=== PATIENT | male | born 2005 | race Caucasian/White ===

== ENCOUNTER 2024-08-07 08:06 | Outpatient (AMB) | payer OTHER, SELFPAY ==
--- NOTE | 2024-08-07 08:14 | MHC.PC.OV ---
Vital Signs 08/07/24 08:17 Height 5 ft 10.47 in Weight 119 lb 4 oz BMI 16.9 BP 120/70 Blood Pressure Location Lt brachial Position Sitting Pulse 97 Pulse Source Pulse Oximeter Temp 97.1 F Temp Source Temporal Artery Scan Pulse Oximetry (%) 98 Oxygen Delivery Method Room Air Intake Visit Reasons: establish care Intake Note: Patient is a new patient here to establish care for Ankle tendon disfunction, Scoliosis, Depression, Anxiety, Chronic pain. Transferring care from Pediatric and Adolescent medicine. Medical records have been requested and have not received. Manager Social Services Required: No Air Traffic Control Manager: Not Required per policy Accompanied by: Self / Same As Patient Allergies fluoxetine [From Prozac] Adverse Reaction (Intermediate, Verified 08/07/24 08:40) brain fog Medication List - Last Reconciled 08/07/24 by oZey Webster PA-C No Known Home Meds Tobacco use date assessed: 08/07/24 Dental Screening Dental Screen Date: 08/07/24 Did you have a dental visit in the last 12 months?: No Did you have a dental problem in the last 6 months where you did not have access to dental care?: No Was dental information given to patient?: Patient has dentist HPI establish care HPI Details 19-year-old male coming to the office with the 1st time. Presenting for a wellness visit and management of chronic conditions. History of anxiety and depression, with anxiety manifesting physically at times. Adverse reaction to fluoxetine noted, and hydroxyzine was ineffective. Depression is described as functionally manageable without current therapy. Chronic pain due to flatfoot, with past consideration of physical therapy or insoles. Pain affects feet, ankles, and occasionally knees and back. Scoliosis present with occasional back pain linked to heavy lifting otherwise asymptomatic. Smoking history of two years, with interest in cessation but no current intervention. 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 1. Little interest or pleasure in doing things: not at all 2. Feeling down, depressed, or hopeless: not at all 3. Trouble falling or staying asleep, or sleeping too much: not at all 4. Feeling tired or having little energy: not at all 5. Poor appetite or overeating: not at all 6. Feeling bad about yourself - or that you are a failure or have let yourself or your family down: not at all 7. Trouble concentrating on things, such as reading the newspaper or watching television: not at all 8. Moving or speaking so slowly that other people could have noticed. Or the opposite - being so fidgety or restless that you have been moving around a lot more than usual: not at all 9. Thoughts that you would be better off or of hurting yourself in some way: not at all Total score: 0 Depression Screening Interpretation: Negative Depression Screening Done: Yes 64303 - PHQ-9 Billing: Yes Source: Developed by Drs. Mo Sweet, Donna Henry, Robby Kumar and colleagues, with an educational virgen from [employer]. Thrive Questionnaire Date Thrive assessed: 07/31/24 I am a: Patient What is your living situation today?: I have a steady place to live Within the past 12 months, did the food you bought not last and you didn't have the money to get more?: Never true Within the past 12 months, did you worry whether your food would run out before you got money to buy more?: Never true Do you have trouble paying for medicines?: No Do you have trouble getting transportation to medical appointments?: No Do you have trouble paying your heating and electricity bill?: No Do you have trouble taking care of your child, family member or friend?: No Do you have trouble with day-to-day activities such as bathing, preparing meals, shopping, managing finances, etc.?: No Are you currently unemployed and looking for a job?: No Are you interested in more education?: Yes Please select the resources that you would like help with: None Currently or been in a relationship where the following occur: No concerns reported THRIVE Score: 0 AUDIT C Alcohol Use Questionnaire (AUDIT-C) 1. How often do you have a drink containing alcohol?: 2-3 times a week 2. How many drinks containing alcohol do you have on a typical day when you are drinking?: 1 or 2 3. How often do you have six or more drinks on one occasion?: Never Total Score: 3 JYOTI-7 AMB Questionnaire JYOTI-7 Date JYOTI - 7 assessed: 08/07/24 Feeling nervous, anxious, or on edge: 1 = Several days Not being able to stop or control worryin = Not at all Worrying too much about different things: 1 = Several days Trouble relaxin = Several days Being so restless that it is hard to sit still: 0 = Not at all Becoming easily annoyed or irritable: 2 = More than half the days Feeling afraid as if something awful might happen: 0 = Not at all Total JYOTI-7 score (0-4 normal; 5-9 mild; 10-14 moderate; 15-21 severe): 5 Source: Developed by Drs. Mo Sweet, Donna Henry, Robby Kumar and colleagues, with an educational virgen from [employer]. JYOTI-7 Assessment Billing JYOTI-7 Assessment Tool: JYOTI-7 Assessment 53116 Review of Systems Const Denies body aches, Denies chills, Denies fever(s), Denies headache(s) and Denies poor appetite Eyes Reports no additional complaints ENT Denies dysphagia, Denies dizziness, Denies headache(s) and Denies odynophagia Card Denies chest pain, Denies syncope, Denies irregular heart rhythm, Denies lightheadedness and Denies dyspnea Resp Denies cough and Denies dyspnea GI Denies abdominal pain, Denies constipation, Denies dysphagia, Reports heartburn, Denies diarrhea, Denies nausea, Denies odynophagia and Denies vomiting Reports no additional complaints Musc Details: gregg foot pain Reports no additional complaints and Denies abnormal gait Skin/Breast Reports system reviewed and no additional complaints, except as documented Neuro Denies abnormal gait, Denies dizziness, Denies syncope and Denies headache(s) Psych Reports no additional complaints Physical exam (Primary Care) Vital Signs: Last Vital Signs Temp 97.1 F 05/28/25 08:17 Pulse 97 08/07/24 08:17 BP 120/70 08/07/24 08:17 Pulse Ox 98 08/07/24 08:17 Oxygen Delivery Method Room Air 08/07/24 08:17 BMI result Body Mass Index 16.9 BMI Assessment/Plan discussion: Low BMI Low, Plan discussed: lifestyle, increase calorie intake and dietary Tobacco/Smoking Status: Tobacco use Status Tobacco use date assessed 08/07/24 08/07/24 08:24 Patient Tobacco Use Status Current everyday Tobacco 08/07/24 08:24 Tobacco use type Cigarette 08/07/24 08:24 e-Cigarette/Vaping Use Never Used 08/07/24 08:24 Are you ready to quit: No Tobacco cessation counseling provided: Yes Items discussed: Nicotine replacement Relapse Prevention: discussed the importance of a supportive environment, weight gain after smoking is common and discussed dietary, exercise and/or lifestyle changes Number of minutes spent counselin CPT code: Less than 3 minutes PHQ-9: PHQ-9 Score PHQ-9: Total score 0 08/07/24 08:24 Depression Screening Interpretation: Negative Thrive Assessment: Date of Thrive Assessment Date Thrive assessed 07/31/24 08/07/24 08:24 Currently or been in a relationship where the following occur: No concerns reported Const General: cooperative, healthy appearing, comfortable and no acute distress Orientation/consciousness: patient oriented x3 HENMT Head: Yes normocephalic Ears: hearing grossly normal bilaterally General nose exam: Normal external nose present Face and sinus: Yes normal facial exam and Yes sinuses nontender Mouth: Normal oral and palatal mucosa present and tongue normal Throat: Yes posterior oropharynx normal Eyes General: appearance normal, both eyes and all related structures Conjunctivae: conjunctivae normal Pupils: Equal, round and reactive pupils present EOM: EOMs intact bilaterally and No Nystagmus present Neck Neck: Yes full ROM and Yes no lymphadenopathy Chest Chest palpation & inspection: normal inspection of the chest Resp Effort & Inspection: normal respiratory effort Auscultation: clear to auscultation bilaterally, no crackles, no rales, no rhonchi and no wheezes Cardio Rate: regular rate Rhythm: regular rhythm Peripheral pulses: radial pulses present and dorsalis pedis present GI Inspection: Yes normal to inspection and No Abdominal wall edema Palpation (GI): Soft to palpation, not firm and nontender Auscultation: normal bowel sounds Rectal Exam - Male: Yes deferred General: Yes no CVA tenderness Back/Spine/Pelvis Back: no CVA tenderness Skin General skin exam: no rashes or lesions noted Neuro General: patient oriented x3 Cranial nerves: Yes Equal, round and reactive pupils present, Yes Midline tongue present, Yes Ability to bilaterally elevate shoulders present and No Nystagmus present Gait exam (Neuro): Normal gait present Extrem General: Yes normal to inspection, Yes full ROM and No edema Psych Speech and movement: Normal speech and movement present Affect: normal affect Attitude: cooperative Insight: Good insight present (Psych) Judgement: Good judgement present (Psych) Coding Level of Care Code New Pt Level 4 (50402) Diagnoses Annual physical exam Z00.00 Underweight R63.6 Flat feet, bilateral M21.41; M21.42 Depression F32.A Anxiety F41.9 Tobacco use disorder F17.200 Scoliosis M41.9 Decreased vision H54.7 Additional Codes JYOTI-7 Assessment Billing - JYOTI-7 Assessment Tool: JYOTI-7 Assessment 91085 ([id number]) PHQ-9 - 57602 - PHQ-9 Billing: Yes ([id number]) Assessment & Plan Assessment & Plan (1) Annual physical exam: Code(s): Z00.00 - Encounter for general adult medical examination without abnormal findings Category: Medical Plan: Patient is up-to-date on all recommended routine screenings and vaccinations for his age. Blood work was ordered and plan to follow up yearly or sooner as needed. (2) Underweight: Code(s): R63.6 - Underweight Category: Medical Plan: Patient having difficulty gaining weight discussed the importance of protein intake and regularly scheduled meals. Offered referral to plastics production machine operator today which was declined. Healthy diet and regular exercise is encouraged. (3) Flat feet, bilateral: Code(s): M21.41 - Flat foot [pes planus] (acquired), right foot; M21.42 - Flat foot [pes planus] (acquired), left foot Category: Medical Plan: Patient having bilateral foot pain due to diagnosed flat feet was previously being seen by a adding machine servicer and recommendation was made for custom orthotics. Referral was placed to Podiatry today (4) Depression: Code(s): F32.A - Depression, unspecified Category: Medical Plan: Patient does report history of functional depression was previously seeing a counselor in the past and was medicated with Prozac which he did not find beneficial. Declining counseling referral or medication management at this time. (5) Anxiety: Code(s): F41.9 - Anxiety disorder, unspecified Category: Medical Plan: See above (6) Tobacco use disorder: Code(s): F17.200 - Nicotine dependence, unspecified, uncomplicated Category: Medical Plan: Smoking cigarettes and the use of tobacco can be harmful. We discussed the importance of stopping and options to aid in smoking cessation. Declining nicotine replacement therapy or medication management at this time. (7) Scoliosis: Code(s): M41.9 - Scoliosis, unspecified Category: Medical Plan: Patient denies any symptoms of back pain related to his scoliosis. (8) Decreased vision: Code(s): H54.7 - Unspecified visual loss Category: Medical Plan: Referral was placed to optometry today patient does require corrective lenses and needs updated prescription. Plan During this visit, I addressed the patient's chronic conditions and health maintenance. Anxiety and depression are currently managed without medication; the patient uses meditation and marijuana. A referral to podiatry was made to explore custom insoles for flatfoot pain. The patient is interested in quitting smoking but is not using cessation aids. Nutritional guidance focused on increasing protein intake to address weight management. Blood work will investigate potential underlying conditions. An eye care referral was made for updated glasses. Follow-up is advised annually or as needed. This note was constructed using voice recognition software. While every effort has been made to ensure accuracy and rn international, still areas may have been included sometimes these areas may affect the content or meeting of the given symptoms. Total time spent caring for the patient today was 30 minutes. This includes time spent before the visit reviewing the chart, time spent during the visit, and time spent after the visit and documentation. Patient was informed and verbally consented to the use of an ambient scribe for clinic note documentation during this visit. Orders: Orders TSH reflex Free T4 Today F41.9 - Anxiety disorder, unspecified, Z00.00 - Encounter for general adult medical examination without abnormal findings Vitamin D 25-OH Total Today R63.6 - Underweight, Z00.00 - Encounter for general adult medical examination without abnormal findings Comprehensive Met. Panel Today R63.6 - Underweight, Z00.00 - Encounter for general adult medical examination without abnormal findings Free T4 (Free Thyroxine) Today F41.9 - Anxiety disorder, unspecified, Z00.00 - Encounter for general adult medical examination without abnormal findings Vitamin B12 and Folate Today R63.6 - Underweight, Z13.21 - Encounter for screening for nutritional disorder Complete Blood Count Auto Diff Today R63.6 - Underweight, Z00.00 - Encounter for general adult medical examination without abnormal findings LATA Reflex Titer and Pattern Today R63.6 - Underweight CT NG by PCR Today Z00.00 - Encounter for general adult medical examination without abnormal findings Referrals Podiatry Referral M21.41 - Flat foot [pes planus] (acquired), right foot, M21.42 - Flat foot [pes planus] (acquired), left foot Optometry Referral H54.7 - Unspecified visual loss, Z00.00 - Encounter for general adult medical examination without abnormal findings
--- OUTSIDE RECORDS SUMMARY | 2024-08-07 08:15 | XMS_ITS | Encounter Summary ---
Author Organization [facility] Address [address] [place] [address] Phone Care Team Providers Care Media Center Specialist Name Role Phone Ashley John MD Primary Care Provider [phone] Encounter Details Date Type Department Care Team (Late st Contact Info) Description 09/22/2016 Conversion Encounter Pediatric And Adolescent Medicine - [place] [address] [place] [address] [place] [address] Social History Tobacco Use Types Packs/Day Years Used Date Smoking Tobacco: Never Assessed Sex and Gender Information Value Date Recorded Sex Assigned at Not on file Legal Sex Male 6:33 PM EDT Gender Identity Male 04/26/2021 10:22 AM EST Sexual Orientation Straight 12/09/2019 9: 27 AM EDT documented as of this encounter Plan of Treatment Not on file documented as of this encounter Visit Diagnoses Not on filedocumented in this encounter Care Teams Media Center Specialist Relationship Specialty Start Date End Date Ashley John MD [address] [place] [address] PCP - General 07/19/17 documented as of this encounter
[2024-08-07 08:17] VITALS: BP 120/70; PULSE 97; TEMP 36.2; O2SAT 98; BMI 16.9
== END 2024-08-07 09:02 | disposition home or self-care (01) ==
LOC: HO.HMCH 08:06
DX: Z00.00 Encounter for general adult medical examination without abnormal findings (principal); R63.6 Underweight; M21.41 Flat foot [pes planus] (acquired), right foot; M21.42 Flat foot [pes planus] (acquired), left foot; F32.A Depression, unspecified; F41.9 Anxiety disorder, unspecified; F17.200 Nicotine dependence, unspecified, uncomplicated; M41.9 Scoliosis, unspecified; H54.7 Unspecified visual loss

== ENCOUNTER → 2024-08-07 08:06 | Outpatient (BNVA) | payer OTHER, SELFPAY | DX: Z00.00 Encounter for general adult medical examination without abnormal findings (principal); R63.6 Underweight; M21.41 Flat foot [pes planus] (acquired), right foot; M21.42 Flat foot [pes planus] (acquired), left foot; F32.A Depression, unspecified; F41.9 Anxiety disorder, unspecified; M41.9 Scoliosis, unspecified; H54.7 Unspecified visual loss; F17.210 Nicotine dependence, cigarettes, uncomplicated; Z13.30 Encounter for screening examination for mental health and behavioral disorders, unspecified; Z13.31 Encounter for screening for depression | CPT/HCPCS: 96127; 99385 ==

== ENCOUNTER 2024-09-25 14:56 | Outpatient (AMB) | payer OTHER, SELFPAY ==
--- NOTE | 2024-09-25 14:56 | A.OFFPC_ITS ---
Intake Visit Reasons: anxiety/ letter for work Arts Administrator Or Manager Required: No Accompanied by: Self / Same As Patient Allergies fluoxetine (From Prozac) Adverse Reaction (Intermediate, Verified 09/25/24 14:58) brain fog Tobacco use date assessed: 08/07/24 Dental Screening Dental Screen Date: 08/07/24 HPI anxiety/ letter for work HPI Details asking for wearing a headphone for anxiety for work-PAtient works [employer] making in [employer]. patient is asking a letter. 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 Mo Sweet, Donna Henry, Robby Kumar and colleagues, with an educational virgen from [employer]. Physical exam (Primary Care) Tobacco/Smoking Status: Tobacco use Status Tobacco use date assessed 08/07/24 09/25/24 14:58 Patient Tobacco Use Status Current everyday Tobacco 09/25/24 14:58 Tobacco use type Cigarette 09/25/24 14:58 e-Cigarette/Vaping Use Never Used 09/25/24 14:58 Thrive Assessment: Date of Thrive Assessment Date Thrive assessed 07/31/24 09/25/24 14:58 Telehealth Telehealth Telehealth Platform: Telephone Location of provider rendering services: practice address Location of patient: address on file Patient Identification confirmed using: Name, : Yes Telehealth method: voice only Patient verbally consented to treatment: Yes Patient verbally consented to billing insurance company: Yes Patient informed of any privacy concerns related to visit: Yes Minutes spent on Phone/Video with Pt.: 15 Coding Level of Care Code Tele Est Pt Level 3 (04950) Diagnoses Generalized anxiety disorder F41.1 Assessment & Plan Assessment & Plan (1) Generalized anxiety disorder: Code(s): F41.1 - Generalized anxiety disorder Category: Medical Plan: Letter has been composed regarding wearing headphones at work Plan History of Present Illness The patient is a 19-year-old male presenting with a request for a doctor's note to wear headphones at work to manage anxiety. The patient has a history of generalized anxiety disorder and depression, which has been previously diagnosed and is currently managed. He reports that wearing headphones at work helps alleviate anxiety symptoms, and his employer is supportive of this accommodation pending a doctor's note. 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 Additionally, the patient has a history of scoliosis, although it was not the focus of this visit. Review of Systems - Psychiatric: Reports anxiety managed with headphones at work. Denies any other psychiatric symptoms. Plan The plan is to provide the patient with a doctor's note to allow the use of headphones at work as a means to manage his anxiety symptoms. The note will mention the patient's diagnosis of generalized anxiety disorder to justify the need for headphones. The patient is advised to hand picker the letter from the office when needed. Patient was informed and verbally consented to the use of an ambient scribe for clinic note documentation during this visit. Discussion Notes I discussed with the patient the provision of a doctor's note to allow the use of headphones at work to manage his anxiety. The patient agreed to have his diagnosis of generalized anxiety disorder mentioned in the note for justification purposes. Patient Instructions - medical support assistant the doctor's note from the office when needed. - Use headphones at work as discussed to help manage anxiety symptoms.
--- OUTSIDE RECORDS SUMMARY | 2024-09-25 15:27 | XMS_ITS | Encounter Summary ---
Author Organization [facility] Address [address] [place] [address] Phone Care Team Providers Care Guard Driver Name Role Phone Ashley John MD Primary Care Provider [phone] Encounter Details Date Type Department Care Team (Late st Contact Info) Description 09/22/2016 Conversion Encounter [facility] - [place] [address] [place] [address] [place] [address] Social History Tobacco Use Types Packs/Day Years [...] on filedocumented in this encounter Care Teams Guard Driver Relationship Specialty Start Date End Date Ashley John MD [address] [facility] [place] [address] PCP - General 07/19/17 08/22/24 documented as of this encounter
== END 2024-09-25 16:36 | disposition home or self-care (01) ==
LOC: HO.HMCH 14:56
PROVIDERS: Visit Provider Internal Medicine
DX: F41.1 Generalized anxiety disorder (principal)